=== PATIENT | male | born 1995 | race Caucasian/White ===

== ENCOUNTER → 2021-10-12 | Outpatient (REF) | payer OTHER ==
[2021-10-12 14:17] LABS: APPEARANCE, URINE CLOUDY (CLEAR); BACTERIA, URINE AUTO 1+ (NEGATIVE); BILIRUBIN, URINE AUTO NEGATIVE (NEGATIVE); BLOOD, URINE BLOOD 3+ (NEGATIVE); COLOR, URINE AMBER (YELLOW); GLUCOSE, URINE (UA) AUTO NEGATIVE (NEGATIVE); KETONE, URINE AUTO NEGATIVE (NEGATIVE); LEUKOCYTE ESTERASE, URINE AUTO TRACE (NEGATIVE); MUCUS, URINE SMALL (NEGATIVE); NITRITE, URINE AUTO NEGATIVE (NEGATIVE); PROTEIN, URINE AUTO 2+ mg/dL (NEGATIVE); RBC, URINE AUTO TNTC /HPF (0-3); SPECIFIC GRAVITY URINE AUTO 1.026 (1.002-1.035); SQUAMOUS EPITHELIAL CELL UR AU 0 /HPF (0-6); UROBILINOGEN, URINE AUTO 0.2 mg/dL (0.0-2.0); WBC, URINE AUTO 55 /HPF (0-3)
[2021-10-12 15:51] LABS: GC DNA AMPLIFICATION NEGATIVE (NEGATIVE)
== END ==
LOC: M SMT 13:06
PROVIDERS: ATTEND Physician Assistant
DX: R31.21 Asymptomatic microscopic hematuria (principal)

== ENCOUNTER → 2021-10-18 | Outpatient (CLI) | payer OTHER | LOC: M RAD 12:45 → EDUNIT# 13:00 | PROVIDERS: ATTEND Physician Assistant | DX: R31.21 Asymptomatic microscopic hematuria (principal) ==

== ENCOUNTER → 2021-10-26 | Outpatient (REF) | payer OTHER ==
[2021-10-26 18:00] LABS: APPEARANCE, URINE CLOUDY (CLEAR); BACTERIA, URINE AUTO NEGATIVE (NEGATIVE); BILIRUBIN, URINE AUTO NEGATIVE (NEGATIVE); BLOOD, URINE BLOOD 3+ (NEGATIVE); COLOR, URINE AMBER (YELLOW); GLUCOSE, URINE (UA) AUTO NEGATIVE (NEGATIVE); KETONE, URINE AUTO NEGATIVE (NEGATIVE); LEUKOCYTE ESTERASE, URINE AUTO NEGATIVE (NEGATIVE); MUCUS, URINE SMALL (NEGATIVE); NITRITE, URINE AUTO NEGATIVE (NEGATIVE); PROTEIN, URINE AUTO NEGATIVE (NEGATIVE); RBC, URINE AUTO 179 /HPF (0-3); SQUAMOUS EPITHELIAL CELL UR AU 0 /HPF (0-6); UROBILINOGEN, URINE AUTO 0.2 mg/dL (0.0-2.0); WBC, URINE AUTO 2 /HPF (0-3)
== END ==
LOC: M SMT 17:02
PROVIDERS: ATTEND Physician Assistant
DX: A74.9 Chlamydial infection, unspecified (principal)
CPT/HCPCS: 81001; G0463

== ENCOUNTER 2021-11-06 01:11 | Emergency (ER) | payer OTHER ==
[~2021-11-06] VITALS: Ht 172.7 cm; Wt 63.4 kg
[2021-11-06 01:12] VITALS: BP 136/95
== END 2021-11-06 03:34 | disposition left against medical advice (07) ==
LOC: M ED 01:11
DX: Z53.21 Procedure and treatment not carried out due to patient leaving prior to being seen by health care provider (principal)

== ENCOUNTER 2021-12-18 10:59 | Emergency (ER) | payer OTHER ==
[~2021-12-18] VITALS: Ht 172.7 cm; Wt 66.5 kg
[2021-12-18] MEDS ORDERED: IRON240T PO (11:06)
[2021-12-18 12:57] LABS: BASO % 0.6 % (0.0-1.0); EOS # 0.1 10^3/uL (0.0-0.5); EOS % 1.3 % (0.0-3.0); HEMOGLOBIN 15.4 g/dl (13.5-17.5); LYMPH # 1.7 10^3/uL (1.5-5.0); MEAN CORPUSCULAR HEMOGLOBIN 28.3 pg (27.0-33.0); MEAN CORPUSCULAR HGB CONC 32.1 g/dl (32.0-36.5); MEAN CORPUSCULAR VOLUME 88.1 fl (80.0-96.0); MONO # 0.5 10^3/uL (0.0-0.8); MONO % 11.3 % (2.0-8.0); NEUTROPHILS # 2.4 10^3/uL (1.5-8.5); NEUTROPHILS % 50.6 % (36.0-66.0); PLATELET COUNT, AUTOMATED 185 10^3/uL (150-450); RED BLOOD COUNT 5.45 10^6/uL (4.30-6.10); WHITE BLOOD COUNT 4.7 10^3/uL (4.0-10.0)
[2021-12-18 13:17] LABS: CK-MB VALUE MASS 1.2 NG/ML (<3.6); MB/CK RELATIVE INDEX 0.26 (< OR =4)
[2021-12-18 13:55] LABS: ALBUMIN 3.9 GM/DL (3.2-5.2); ALT/SGPT 36 U/L (12-78); BILIRUBIN,DIRECT < 0.1 MG/DL (0.0-0.2); BILIRUBIN,TOTAL 0.5 MG/DL (0.2-1.0); BLOOD UREA NITROGEN 10 MG/DL (7-18); CALCIUM LEVEL 9.3 MG/DL (8.5-10.1); CARBON DIOXIDE LEVEL 31 MEQ/L (21-32); CHLORIDE LEVEL 106 MEQ/L (98-107); CREATININE FOR GFR 1.13 MG/DL (0.70-1.30); GLOMERULAR FILTRATION RATE > 60.0 (>60); GLUCOSE, FASTING 89 MG/DL (70-100); LIPASE 52 U/L (73-393); NT-PRO BNP 13 PG/ML (<125); POTASSIUM SERUM 4.8 MEQ/L (3.5-5.1); SODIUM LEVEL 138 MEQ/L (136-145); TOTAL PROTEIN 7.8 GM/DL (6.4-8.2)
[2021-12-18 14:22] LABS: CK-MB VALUE MASS 1.1 NG/ML (<3.6); MB/CK RELATIVE INDEX 0.24 (< OR =4)
[2021-12-18 14:57] VITALS: BP 137/84
== END 2021-12-18 15:00 | disposition home or self-care (01) ==
LOC: M ED 10:59
DX: R07.9 Chest pain, unspecified (principal); R06.02 Shortness of breath; F17.200 Nicotine dependence, unspecified, uncomplicated

== ENCOUNTER 2022-05-11 16:36 | Emergency (ER) | payer OTHER ==
[~2022-05-11] VITALS: Ht 175.3 cm; Wt 64.9 kg
[~2022-05-11 16:36] MED LIST: IRON240T PO
[2022-05-11] MEDS ORDERED: ONDANSETRON 4MG 2ML VIAL IV ONE (20:00)
[2022-05-11 20:25] LABS: HEMATOCRIT 46.6 % (42.0-52.0); HEMOGLOBIN 15.3 g/dl (13.5-17.5); MEAN CORPUSCULAR HEMOGLOBIN 29.5 pg (27.0-33.0); MEAN CORPUSCULAR HGB CONC 32.8 g/dl (32.0-36.5); PLATELET COUNT, AUTOMATED 170 10^3/uL (150-450); RED BLOOD COUNT 5.18 10^6/uL (4.30-6.10); WHITE BLOOD COUNT 7.5 10^3/uL (4.0-10.0)
[2022-05-11 20:43] LABS: BASOPHILS 2 % (0-1); EOSINOPHILS 6 % (0-3); LYMPHOCYTES 39 % (16-44); MONOCYTES 9 % (0-5); NEUTROPHILS 44 % (28-66); PLATELET ESTIMATE NORMAL (NORMAL)
[2022-05-11 22:03] LABS: FREE THYROXINE INDEX 2.5 % (1.4-3.8); PERCENT SATURATION 14.7 % (19.7-50.0); THYROID STIMULATING HORMONE 2.4 uIU/ML (0.358-3.740); THYROXINE (T4) 7.6 UG/DL (4.5-12.0)
[2022-05-11] MEDS ORDERED: FERR325T3 PO (22:18)
[2022-05-11 22:32] VITALS: BP 135/78
== END 2022-05-11 22:33 | disposition home or self-care (01) ==
LOC: M ED 16:36
DX: R42 Dizziness and giddiness (principal); R79.0 Abnormal level of blood mineral; R11.2 Nausea with vomiting, unspecified; D50.9 Iron deficiency anemia, unspecified; Z79.899 Other long term (current) drug therapy
CPT/HCPCS: 80047; 82728; 83550; 84436; 84443; 84479; 85025; 93005; 96374; 99284; J2405

== ENCOUNTER 2022-09-05 12:18 | Emergency (ER) | payer OTHER ==
[~2022-09-05] VITALS: Ht 172.7 cm; Wt 63.5 kg
[~2022-09-05 12:18] MED LIST changes: +FERR325T3 PO
[2022-09-05] MEDS ORDERED: IBUPROFEN 800 MG TAB PO ONE (15:30)
[2022-09-05] MEDS ORDERED: IBUP80TA PO (15:46)
[2022-09-05 15:51] VITALS: BP 123/78
== END 2022-09-05 16:07 | disposition home or self-care (01) ==
LOC: M ED 12:18
DX: S80.12XA Contusion of left lower leg, initial encounter (principal); W50.0XXA Accidental hit or strike by another person, initial encounter; Y93.62 Activity, american flag or touch football; Y99.1 Military activity; F17.290 Nicotine dependence, other tobacco product, uncomplicated; Z79.899 Other long term (current) drug therapy

== ENCOUNTER 2022-09-11 13:00 | Emergency (ER) | payer OTHER ==
[~2022-09-11] VITALS: Ht 172.7 cm; Wt 65.0 kg
[2022-09-11 13:00] VITALS: BP 143/77
[~2022-09-11 13:00] MED LIST changes: +IBUP80TA PO
[2022-09-11] MEDS ORDERED: FERR325T18 (16:11)
[2022-09-11] MEDS ORDERED: HYDR-3713 PO (23:38)
== END 2022-09-11 15:17 | disposition left against medical advice (07) ==
LOC: M ED 13:00
DX: Z53.21 Procedure and treatment not carried out due to patient leaving prior to being seen by health care provider (principal)

== ENCOUNTER 2022-09-11 15:51 | Emergency (ER) | payer OTHER ==
[~2022-09-11] VITALS: Ht 172.7 cm; Wt 63.6 kg
[2022-09-11 15:51] VITALS: BP 138/92
[2022-09-11] MEDS ORDERED: FERR325T18 (16:11)
[2022-09-11] MEDS ORDERED: MORPHINE 10 MG/ML 1ML VIAL IM ONE (23:10)
[2022-09-11] MEDS ORDERED: HYDR-3713 PO (23:38)
[2022-09-11] MEDS ORDERED: OXYCODONE/APAP 5MG/325MG(HOME DOSE PACK) PO ONE (23:40)
== END 2022-09-11 23:49 | disposition home or self-care (01) ==
LOC: M ED 15:51
DX: S80.12XA Contusion of left lower leg, initial encounter (principal); W50.0XXA Accidental hit or strike by another person, initial encounter; Z79.899 Other long term (current) drug therapy
CPT/HCPCS: 73564; 73590; 73610; 96372; 99282; J2270

== ENCOUNTER 2025-07-19 06:41 | Emergency (ER) | payer OTHER ==
[~2025-07-19] VITALS: Ht 175.3 cm; Wt 59.7 kg
[~2025-07-19 06:41] MED LIST changes: +FERR325T18; +HYDR-3713 PO
[2025-07-19 06:43] VITALS: TEMP 96.8
[2025-07-19 08:12] LABS: BASO # 0.0 10^3/uL (0.0-0.2); BASO % 0.7 % (0.0-1.0); EOS # 0.1 10^3/uL (0.0-0.5); EOS % 2.2 % (0.0-3.0); LYMPH # 1.6 10^3/uL (1.5-5.0); LYMPH % 38.5 % (24.0-44.0); MONO # 0.6 10^3/uL (0.0-0.8); MONO % 13.9 % (2.0-8.0); NEUTROPHILS # 1.8 10^3/uL (1.5-8.5); NEUTROPHILS % 44.7 % (36.0-66.0); PLATELET COUNT, AUTOMATED 146 10^3/uL (150-450)
[2025-07-19 08:44] LABS: CALCIUM LEVEL 9.5 MG/DL (8.5-10.1); CARBON DIOXIDE LEVEL 33 MMOL/L (20-31); CHLORIDE LEVEL 105 MMOL/L (98-107); CK-MB VALUE MASS 1.2 NG/ML (<3.6); CREATININE FOR GFR 1.01 MG/DL (0.70-1.30); GLOMERULAR FILTRATION RATE > 90.0 (>60); POTASSIUM SERUM 4.3 MMOL/L (3.5-5.1); SODIUM LEVEL 145 MMOL/L (136-145)
[2025-07-19 08:47] LABS: CPK CREATINE PHOSPHOKINASE 202 U/L (46-171); MB/CK RELATIVE INDEX 0.59 (< OR =4)
[2025-07-19] MEDS: KETOROLAC 30 MG/ML 1 ML VIAL IV ONE (09:24)
[2025-07-19 09:32] LABS: CK-MB VALUE MASS 1.2 NG/ML (<3.6)
[2025-07-19 09:34] LABS: CPK CREATINE PHOSPHOKINASE 205.0 U/L (46-171); MB/CK RELATIVE INDEX 0.58 (< OR =4)
[2025-07-19 10:15] VITALS: BP 131/83; O2SAT 97
== END 2025-07-19 10:31 | disposition home or self-care (01) ==
LOC: M ED 06:41
DX: R07.9 Chest pain, unspecified (principal); F17.290 Nicotine dependence, other tobacco product, uncomplicated; Z79.899 Other long term (current) drug therapy
CPT/HCPCS: 71045; 80048; 82550; 82553; 84484; 85025; 93005; 93041; 94760; 96374; 99285; J1885